=== PATIENT | male | born 1940 | race American Indian/Alaskan Native ===

== ENCOUNTER 2021-04-03 10:58 | Day surgery (SDC) | payer MEDICARE ==
[~2021-04-03 10:58] MED LIST: WATER FOR IRRIG STERILE 1,500 ML BOTTLE IR ONE; WATER FOR IRRIG STERILE 2000 ML IR ONE
--- NOTE | 2021-04-03 11:35 | Anesthesia Day of Surgery ---
Anesthesia Day of Surgery - Day of Surgery Patient Examined: Yes Patient H&P Reviewed: Yes Patient is NPO: Yes
--- NOTE | 2021-04-03 11:37 | Anesthesia Consultation ---
Anesthesia Consult and Med Hx Date of service: 04/03/21 - Airway Anesthetic Teeth Evaluation: Dentures, Edentulous ROM Head & Neck: Adequate Mental/Hyoid Distance: Adequate Mallampati Class: Class II Intubation Access Assessment: Probably Good - Pre-Operative Health Status ASA Pre-Surgery Classification: ASA3 Proposed Anesthetic Plan: General - Pulmonary Hx Smoking: Yes Hx Respiratory Symptoms: Yes (EVANS) SOB: Yes - Cardiovascular System Hx Hypertension: Yes Hx Cardia Arrhythmia: Yes (AFIB) - Central Nervous System Hx Psychiatric Problems: Yes (Depression) - Gastrointestinal Hx Gastroesophageal Reflux Disease: No - Endocrine Hx Renal Disease: Yes (CRI) Hx Non-Insulin Dependent Diabetes: No - Hematic Hx Sickle Cell Disease: No - Other Systems Hx Alcohol Use: Yes Hx Cancer: No Hx Obesity: Yes - Additional Comments Anesthesia Medical History Comments: Spoke with son and on the phone. 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 They report everything was OK on the last visit.
[2021-04-03] MEDS ORDERED: LACTATED RINGERS 1,000 ML IV SCH (11:45)
[2021-04-03] MEDS ORDERED: ceFAZolin/STERILE WATER 2 GM/20 ML SYRINGE IV NR (12:00)
[2021-04-03] MEDS ORDERED: ceFAZolin/Water 2 GM/20 ML 2 GM/20 ML SYRINGE IV ONE (12:04)
[2021-04-03] MEDS ORDERED: LACTATED RINGERS 1,000 ML ONE (12:07)
[2021-04-03] MEDS ORDERED: propofoL 200 MG/20 ML VIAL IV ONE (12:08)
[2021-04-03] MEDS ORDERED: LIDOCAINE MPF (2%) 20 MG/1 ML VIAL 5 ML ONE (12:08)
[2021-04-03] MEDS ORDERED: fentaNYL 100 MCG/2 ML INJ ONE (12:09)
[2021-04-03 12:40] LABS: Calcium 9.6 mg/dL (8.4-10.2)
[2021-04-03] MEDS ORDERED: WATER FOR IRRIG STERILE 2000 ML IR ONE (12:53)
[2021-04-03] MEDS ORDERED: WATER FOR IRRIG STERILE 1,500 ML BOTTLE IR ONE (12:53)
--- NOTE | 2021-04-03 15:42 | Post Anesthesia Evaluation ---
- Post Anesthesia Evaluation Patient Participated: Yes Airway Patent: Yes Stable Respiratory Function: Yes Nausea/Vomiting: No Temp > 96.8F: Yes Pain Manageable: Yes Adequeate Hydration: Yes Anesthesia Complications: No Block Receding Appropriately: Not Applicable Patient on Ventilator: No
[2021-04-03 16:44] VITALS: BP 134/79
--- NOTE | 2021-04-04 10:35 | Post Operative Note ---
Pre-op diagnosis: Bladder cancer and recurrent bladder tumor Post-op diagnosis: same Findings: Large bladder tumor at left bladder neck and two posterior wall tumors Procedure: TURBT, large, > 5 cm Anesthesia: GETA Surgeon: JUN GUPTA Estimated blood loss: minimal Pathology: list (1. Urine for cytology 2. Bladder tumor at left bladder neck) Specimen disposition: to lab Condition: stable Disposition: PACU
--- NOTE | 2021-04-12 17:35 | Operative Report ---
DATE OF SURGERY: 04/03/2021 PREOPERATIVE DIAGNOSES: 1. History of bladder cancer. 2. Recurrent bladder tumor. POSTOPERATIVE DIAGNOSES: 1. History of bladder cancer. 2. Recurrent bladder tumor PROCEDURE: TURBT, large, greater than, 5 cm. SURGEON: Pool Cope MD ANESTHESIA: General. FINDINGS: 1. A large bladder tumor at the left bladder neck, left trigone. 2. Two smaller lesions in the posterior wall and anterior wall. SPECIMENS: 1. Urine for cytology. 2. Bladder tumor from bladder neck, superficial and deep. Estimated blood loss was 25 mL. Drains was a Rose catheter COMPLICATIONS: None. INDICATIONS FOR PROCEDURE: The patient is a 80-year-old man with a history of high-grade T1 bladder cancer who did not receive BCG due to the COVID virus. He represented with imaging suggestive of recurrent tumors. He was brought to the operating room for cystoscopy and tumor resection. PROCEDURE IN DETAIL: After induction of suitable anesthesia and proper positioning in preparation in the dorsal lithotomy position, a resectoscope was used to enter the bladder under direct visualization. The patient had 2 small tumors at the posterior wall and dome. He also had a dominant tumor at the left bladder neck extending onto the trigone just lateral to the ureteral orifice. The smaller tumors on the bladder on the posterior wall and the dome were fulgurated extensively with the loop electrocautery. The dominant tumor at the bladder neck and left trigone was resected very carefully. Superficial and deep specimens were sent. The ureteral orifice was always kept inside and was uninjured. Once the tumor was completely resected, the resection bed was copiously fulgurated to ensure hemostasis. It was hemostatic at the end. All the tumor specimen was removed. The bladder was then drained and a Rose catheter was placed for postoperative drainage. The patient will go home with the catheter, which will be taken out in the office in a day or two. The patient was then awakened from anesthesia and transferred to the recovery room in stable condition. He tolerated the procedure well. TID: [id number] RECEIPT: [id number] LORETTA/TALISHA
== END 2021-04-03 14:55 | disposition home or self-care (01) ==
LOC: OR 10:58
PROVIDERS: ATTEND Urology
DX: C67.8 Malignant neoplasm of overlapping sites of bladder (principal); I10 Essential (primary) hypertension; I48.91 Unspecified atrial fibrillation; E78.00 Pure hypercholesterolemia, unspecified; E66.9 Obesity, unspecified; F41.9 Anxiety disorder, unspecified; F32.9 Major depressive disorder, single episode, unspecified; F17.210 Nicotine dependence, cigarettes, uncomplicated; Z79.82 Long term (current) use of aspirin; Z79.899 Other long term (current) drug therapy; Z98.890 Other specified postprocedural states
CPT/HCPCS: 36415; 52240; 80048; 88112; 88305; 88341; 88342; A4217; J0690; J2704; J3010; J7120; 88307